=== PATIENT | female | born 1970 | race Caucasian/White ===

== ENCOUNTER 2016-05-25 11:10 | Emergency (ER) | payer OTHER ==
[2016-05-25 11:10] VITALS: BMI 19.5
[2016-05-25 11:19] VITALS: TEMP 98.2
--- NOTE | 2016-05-25 11:55 | C.PDOC ---
History Of Present Illness 46 y/o female presents to the ED with complains of bilateral breast pain. Pt was previously told she has nodular breasts, last mammogram 2010. Pt was seen by D[employer] C[employer]OGRAPH[employer] TECHNICIAN last week and has appointment upcoming for mammogram. Pt denies fever, chills, nipple discharge or any other complaints. Time Seen by Provider: 05/25/16 11:36 Chief Complaint (Nursing): Breast Problem History Per: Patient History/Exam Limitations: no limitations Onset/Duration Of Symptoms: Days Current Symptoms Are (Timing): Still Present Severity: Mild Recent travel outside of the [place]: No Past Medical History Reviewed: Historical Data, Nursing Documentation, Vital Signs Vital Signs: Last Vital Signs Temp 98.2 F 05/25/16 11:18 Pulse 61 05/25/16 12:49 Resp 18 05/25/16 12:49 BP 129/82 05/25/16 12:49 Pulse Ox 98 05/25/16 13:43 Family History: States: Unknown Family Hx - Social History Hx Alcohol Use: No Hx Substance Use: No - Immunization History Hx Tetanus Toxoid Vaccination: No Hx Influenza Vaccination: No Hx Pneumococcal Vaccination: No Review Of Systems Except As Marked, All Systems Reviewed And Found Negative. Constitutional: Negative for: Fever Musculoskeletal: Positive for: Other (bilateral breast pain; no nipple discharge ) Physical Exam - Physical Exam Appears: Non-toxic, No Acute Distress Skin: Warm, Dry, No Rash Head: Atraumatic, Normacephalic Lymphatic: No Adenopathy Chest: Symmetrical, Other (on palpation, bilateral breasts feel fibrocystic, no obvious lumps; no discharge from nipple, no change in color of skin or nipples) Cardiovascular: Rhythm Regular, No Murmur Respiratory: Normal Breath Sounds, No Rales, No Rhonchi, No Wheezing Extremity: Bilateral: Atraumatic Neurological/Psych: Oriented x3 ED Course And Treatment O2 Sat by Pulse Oximetry: 98 (on room air) Pulse Ox Interpretation: Normal Progress Note: test negative. Instructed patient to continue to follow up for mammogram. Disposition - Disposition Referrals: Elia Davis MD [Staff Provider] - Disposition: HOME/ ROUTINE Disposition Time: 12:37 Condition: STABLE Additional Instructions: Follow up with PMD within 1-2 days. Return to ED if feel worse. Prescriptions: oxyCODONE/Acetaminophen [Percocet 5/325 mg Tab] 1 tab PO QID PRN #20 tab PRN Reason: Pain Instructions: Breast Care for the Non-breast Feeding Woman (ED) Print Language: GREENLANDIC - Clinical Impression Clinical Impression: Pain of breast - PA / DIRECTOR OF FIRST IMPRESSIONS / Resident Statement MD/DO has reviewed & agrees with the documentation as recorded. - Scribe Statement The provider has reviewed the documentation as recorded by the Scribe Valentín Jean All medical record entries made by the Scribe were at my direction and personally dictated by me. I have reviewed the chart and agree that the record accurately reflects my personal performance of the history, physical exam, medical decision making, and the department course for this patient. I have also personally directed, reviewed, and agree with the discharge instructions and disposition.
[2016-05-25 12:49] VITALS: BP 129/82; PULSE 61; RESP 18
[2016-05-25 13:40] VITALS: O2SAT 98
== END 2016-05-25 12:50 | disposition home or self-care (01) ==
LOC: C.ER 11:10
DX: N64.4 Mastodynia (principal)